=== PATIENT | female | born 1975 | race African-American/Black ===

== ENCOUNTER 2016-10-11 20:33 | Emergency (ER) | payer MEDICARE, MEDICAID ==
[~2016-10-11] VITALS: Ht 165.1 cm; Wt 108.9 kg
[~2016-10-11 20:33] MED LIST: ABILIFY5 MG ORAL; AMLODIPINE-ATO1 EAC5 ORAL; ASPIR 8181 MG ORAL; ATARAX50 MG ORAL; ATIVAN1 MG ORAL; DEPAKENE L250 MG/5 M PO; DEPAKOTE250 MG PO; FLUOXETINE HCL40 MG ORAL; GABAPENTIN600 MG ORAL; HALDOL5 MG ORAL; HALOPERIDOL1 MG ORAL; HYDROCHLOROTHIA25 MG ORAL; KLOR-CON20 MEQ ORAL; LEVETIRACE500 MG/51 PO; LIDALL 4%-1% P1 EACH TP; LITHIUM CARBON300 MG ORAL; NEURONTIN600 MG ORAL; NITRO-TIME2.5 MG PO; OXYCONTIN10 MG ORAL; PREDNISONE20 MG ORAL; PROAIR HFA8.5 GM INH; RISPERDAL2 MG ORAL; SEROQUEL100 MG ORAL; TRAMADOL HCL50 MG ORAL; TRAZODONE HCL150 MG ORAL; ULTRAM50 MG ORAL; VENTOLIN HFA18 GM INH; XANAX2 MG ORAL; ZOFRAN ODT4 MG ORAL; ZOFRAN4 M3 ORAL; benzatropine PO
[2016-10-11 22:20] LABS: BASOPHILS % (AUTO) 0.6 % (0.0-2.0); EOSINOPHILS % (AUTO) 3.8 % (0.0-3.0); LYMPHOCYTES % (AUTO) 34.5 % (20.0-45.0); MEAN CORPUSCULAR HEMOGLOBIN 30.3 PG (27.0-31.0); MEAN CORPUSCULAR HGB CONC 31.5 G/DL (32.0-36.0); MEAN CORPUSCULAR VOLUME 96 FL (80-99); MEAN PLATELET VOLUME 7.5 FL (6.5-10.1); MONOCYTES % (AUTO) 6.4 % (1.0-10.0); NEUTROPHILS % (AUTO) 54.7 % (45.0-75.0); PLATELET COUNT 173 K/UL (150-450); RED BLOOD COUNT 3.53 M/UL (4.20-5.40); RED CELL DISTRIBUTION WIDTH 14.2 % (11.6-14.8); WHITE BLOOD COUNT 8.1 K/UL (4.8-10.8)
[2016-10-11 22:33] VITALS: BP 117/92
[2016-10-11 22:45] LABS: TROPONIN I < 0.30 ng/mL (<=0.30)
[2016-10-11 22:46] LABS: ALANINE AMINOTRANSFERASE 11 U/L (3-33); ALBUMIN/GLOBULIN RATIO 1.1 (1.0-2.7); ANION GAP 12 (5-15); ASPARTATE AMINO TRANSFERASE 10 U/L (5-40); CARBON DIOXIDE 26 mEQ/L (20-30); CHLORIDE 100 mEQ/L (98-107); CREATININE 0.7 mg/dL (0.5-0.9); GLOMERULAR FILTRATION RATE > 60 mL/min (>60); HEMOLYSIS 5; SODIUM 138 mEQ/L (135-145)
[2016-10-11 22:56] LABS: CKMB < 1.5 ng/mL (< 3.8)
[2016-10-11 23:45] VITALS: BP 98/53
--- NOTE | 2016-10-12 00:32 | Emergency Room Report ---
History of Present Illness General Chief Complaint: Chest Pain Source: Patient, EMS Present Illness HPI The patient is a 41-year-old female brought in by ambulance for chest pain. The patient recently been discharged from a hospital have for similar type complaints. Patient was noted to have a multiple prior medical problems and complaints. The patient states that she is chronic joint pain from prior trauma. She also states that she had had previously been on anticoagulation from her own physician. Patient reportedly was discharged from prior hospitalization without anticoagulation and was told to followup with her primary care physician. The patient denies any fever.She reports taking morphine for pain and states that she has ample supply of her medications. Allergies: Coded Allergies: MORPHINE (Verified Allergy, Mild, itching, 12/08/13) BEESWAX (Unverified Allergy, Unknown, 04/03/14) LATEX (Verified Allergy, Unknown, 12/08/13) Uncoded Allergies: LATEX (Allergy, Unknown, 11/27/15) Patient History Past Medical History: see triage record Now: No Reviewed Nursing Documentation: PMH: Agreed, PSxH: Agreed Nursing Documentation-PMH Past Medical History: No History, Except For Hx Cardiac Problems: Yes Hx Hypertension: Yes Hx Diabetes: Yes Hx Cancer: No Hx Gastrointestinal Problems: Yes - partial hysterectomy Hx Neurological Problems: Yes Hx Seizures: Yes Hx Neurologic Surgery: No Review of Systems All Other Systems: negative except mentioned in HPI Physical Exam Vital Signs Date Time Temp Pulse Resp B/P Pulse Ox O2 Delivery O2 Flow Rate FiO2 10/11/16 20:32 98.8 90 16 117/92 100 Room Air Sp02 EP Interpretation: reviewed, normal General Appearance: normal inspection, well appearing, no apparent distress, alert, GCS 15 Head: atraumatic ENT: normal ENT inspection, hearing grossly normal, normal voice Neck: normal inspection, full range of motion, supple, no bony tend Respiratory: normal inspection, lungs clear, normal breath sounds, no respiratory distress, no retraction, no wheezing Cardiovascular #1: regular rate, rhythm, no edema Gastrointestinal: normal inspection, normal bowel sounds, non tender, soft, no guarding, no hernia Genitourinary: no CVA tenderness Musculoskeletal: normal inspection, back normal, normal range of motion Neurologic: normal inspection, alert, responsive, speech normal, other - antalgic gait Psychiatric: normal inspection, judgement/insight normal, mood/affect normal Skin: normal inspection, normal color, no rash Medical Decision Making Diagnostic Impression: Primary Impression: Atypical chest pain ER Course Patient presented for chest pain.Differential diagnosis included but was not limited to acute coronary syndrome, pulmonary embolism, pneumonia, aortic dissection, shingles, pneumothorax, aortic dissection, esophageal rupture, pericarditis. Because of complexity of patient's case laboratory testing and imaging studies were ordered. I laboratory studies were ordered and showed negative troponin. The other laboratory studies are unremarkable.The patient was advised to follow up with her own physician for initiation of anticoagulation if indicated.The patient is advised to follow up with primary care doctor in 1-2 days. Patient is advised to return if any worsening condition or if any changes in status that are concerning. Labs Test 10/11/16 21:41 10/11/16 21:47 White Blood Count 8.1 K/UL (4.8-10.8) Red Blood Count 3.53 M/UL (4.20-5.40) Hemoglobin 10.7 G/DL (12.0-16.0) Hematocrit 34.0 % (37.0-47.0) Mean Corpuscular Volume 96 FL (80-99) Mean Corpuscular Hemoglobin 30.3 PG (27.0-31.0) Mean Corpuscular Hemoglobin Concent 31.5 G/DL (32.0-36.0) Red Cell Distribution Width 14.2 % (11.6-14.8) Platelet Count 173 K/UL (150-450) Mean Platelet Volume 7.5 FL (6.5-10.1) Neutrophils (%) (Auto) 54.7 % (45.0-75.0) Lymphocytes (%) (Auto) 34.5 % (20.0-45.0) Monocytes (%) (Auto) 6.4 % (1.0-10.0) Eosinophils (%) (Auto) 3.8 % (0.0-3.0) Basophils (%) (Auto) 0.6 % (0.0-2.0) Sodium Level 138 mEQ/L (135-145) Potassium Level 4.0 mEQ/L (3.4-4.9) Chloride Level 100 mEQ/L (98-107) Carbon Dioxide Level 26 mEQ/L (20-30) Anion Gap 12 (5-15) Blood Urea Nitrogen 15 mg/dL (7-23) Creatinine 0.7 mg/dL (0.5-0.9) Estimat Glomerular Filtration Rate > 60 mL/min (>60) Glucose Level 92 mg/dL (74-106) Calcium Level 8.0 mg/dL (8.6-10.2) Total Bilirubin < 0.2 mg/dL (0.0-1.2) Aspartate Amino Transf (AST/SGOT) 10 U/L (5-40) Alanine Aminotransferase (ALT/SGPT) 11 U/L (3-33) Alkaline Phosphatase 71 U/L (35-104) Total Creatine Kinase 37 U/L (26-140) Creatine Kinase MB < 1.5 ng/mL (< 3.8) Creatine Kinase MB Relative Index Troponin I < 0.30 ng/mL (<=0.30) Pro-B-Type Natriuretic Peptide 186 pg/mL (0-125) Total Protein 6.0 g/dL (6.6-8.7) Albumin 3.2 g/dL (3.5-5.2) Globulin 2.8 g/dL Albumin/Globulin Ratio 1.1 (1.0-2.7) Urine HCG, Qualitative Negative Urine Opiates Screen Positive (NEGATIVE) Urine Barbiturates Screen Negative (NEGATIVE) Phencyclidine (PCP) Screen Negative (NEGATIVE) Urine Amphetamines Screen Negative (NEGATIVE) Urine Benzodiazepines Screen Negative (NEGATIVE) Urine Cocaine Screen Negative (NEGATIVE) Urine Marijuana (THC) Screen Negative (NEGATIVE) Chest X-Ray Diagnostic Results EP Interpretation: Yes Findings: no consolidation, no effusion, no pneumothorax, no acute cardiopulmonary disease Number of Views: 1 Last Vital Signs Date Time Temp Pulse Resp B/P Pulse Ox O2 Delivery O2 Flow Rate FiO2 10/11/16 23:45 98.8 74 17 98/53 100 Room Air Status: improved Disposition: HOME, SELF-CARE Condition: Stable Patient Instructions: Nonspecific Chest Pain Brown Lucas Oct 12, 2016 00:32
--- NOTE | 2016-10-12 15:02 | Cardiology Report ---
APPROVED REPORT EKG Measurement Heart [id number] 96P [id number] Sinus tachycardia with short GA Cannot rule out Anterior infarct, age undetermined T wave abnormality, consider inferior ischemia Abnormal ECG
--- NOTE | 2016-10-16 10:32 | Diagnostic Imaging Report ---
Indication: SOB Technique: One view of the chest Comparison: 11/27/2015 Findings: Heart is enlarged. Lungs and pleural spaces are clear. Previously demonstrated left basilar opacities are no longer evident Impression: Cardio megaly. No acute process
== END 2016-10-11 23:45 | disposition home or self-care (01) ==
LOC: EDBD 20:33 → EMR 21:00
DX: R07.89 Other chest pain (principal); Z88.5 Allergy status to narcotic agent; Z91.040 Latex allergy status; I10 Essential (primary) hypertension; Z86.79 Personal history of other diseases of the circulatory system; E11.9 Type 2 diabetes mellitus without complications; Z87.19 Personal history of other diseases of the digestive system; Z86.69 Personal history of other diseases of the nervous system and sense organs
CPT/HCPCS: 36415; 71010; 80053; 80300; 81025; 82550; 82553; 83880; 84484; 85025; 93005; 96374